=== PATIENT | male | born 1935 | race Asian ===

== ENCOUNTER 2020-07-16 09:57 | Observation (INO) | payer MEDICARE ==
[2020-07-16 11:25] LABS: Hematocrit 35.6 % (35.5-45.6); Mean Corpuscular HGB Conc 34 % (32-34); Mean Corpuscular Volume 99 fl (84-94); Platelet Count 106 K/mm3 (140-440); Red Blood Count 3.61 M/mm3 (3.65-5.03); Red Cell Distribution Width 16.4 % (13.2-15.2)
[2020-07-16 11:35] LABS: Calcium 9.2 mg/dL (8.4-10.2)
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
[2020-07-17] MEDS ORDERED: SODIUM CHLORIDE 0.9% 100 ML IV PRN (06:53)
[2020-07-17 07:41] VITALS: BP 123/71
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
[2020-07-17] MEDS ORDERED: ONDANSETRON 4 MG/2 ML INJ IV PRN (10:37)
[2020-07-17] MEDS ORDERED: ACETAMINOPHEN 325 MG TAB PO PRN (10:37)
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
== END 2020-07-17 10:30 | disposition left against medical advice (07) ==
LOC: ED 09:57 → 3A 07-17 02:28
PROVIDERS: ADMIT Internal Medicine Geriatric Medicine; ATTEND Internal Medicine Geriatric Medicine
DX: I12.0 Hypertensive chronic kidney disease with stage 5 chronic kidney disease or end stage renal disease (principal); E11.22 Type 2 diabetes mellitus with diabetic chronic kidney disease; N18.6 End stage renal disease; E87.2 Acidosis; Z85.46 Personal history of malignant neoplasm of prostate; Z99.2 Dependence on renal dialysis; Z91.15 Patient's noncompliance with renal dialysis; Z79.899 Other long term (current) drug therapy
CPT/HCPCS: 36415; 80048; 85027; 99291; G0378